=== PATIENT | male | born 1985 | race African-American/Black ===

== ENCOUNTER 2017-10-16 07:10 | Emergency (ER) | payer OTHER ==
[2017-10-16] MEDS ORDERED: ACETAMINOPHEN 325 MG TABLET (FP) PO ONE (07:14)
[2017-10-16 07:16] VITALS: BP 153/88; PULSE 96; TEMP 99.2; BMI 37.5
--- NOTE | 2017-10-16 07:19 | PDOC ---
History of Present Illness - General Chief Complaint: Respiratory Stated Complaint: SORE THROAT, COUGH, FEVER Time Seen by Provider: 10/16/17 07:14 History Source: Patient Exam Limitations: No Limitations - History of Present Illness Initial Comments: 10/16/17 07:14 32y M no pmhx presents with complaint of throat pain for the past few days associated with nasal congestion, post nasal drip, and subjective fevers. The pt states he has been just doing fluids the past few days and started trying rice last night, but noticed his throat felt more irritated. The patient took some benadyl and motrin last night but came in to get checked out. The pt also notes that he is snoring louder at night. The pt denies any significant cough, no back pain, cp, abd pain, rashes, known sick contacts, travel. Past History - Past Medical History Allergies/Adverse Reactions: Allergies Allergy/AdvReac Type Severity Reaction Status Date / Time No Known Allergies Allergy Verified 10/16/17 07:11 Home Medications: Ambulatory Orders NK [No Known Home Medication] 07/20/15 - Immunization History Immunization Up to Date: Yes - Suicide/Smoking/Psychosocial Hx Smoking Status: No Smoking History: Never smoked Have you smoked in the past 12 months: No Number of Cigarettes Smoked Daily: 0 Cigars Per Day: 0 Hx Alcohol Use: No Drug/Substance Use Hx: No Substance Use Type: None Review of Systems - Review of Systems Able to Perform ROS?: Yes Comments:: 10/16/17 07:16 Constitutional - + Fever,no reported Chills, HEENT: +sore throat nasal congestion, no reported vision changes, Respiratory: no reported cough, sob, hemoptysis Cardiac: no reported chest pain, palpitations, light headedness, leg swelling Abd/GI: no reported abd pain, nausea, vomiting, blood per rectum, melena, diarrhea : no reported dysuria, frequency, discharge Musculskelatal - no reported back pain, joint swelling skin - no reported bruising, erythema, rash neurological: no reported headache, numbness, focal weakness, tingling, ataxia, hematologic: no reported anemia, easy bruising, easy bleeding *Physical Exam - Physical Exam Comments: 10/16/17 07:17 GENERAL: The patient is awake, alert, and fully oriented, Nontoxic - in no acute distress. HEAD: Normocephalic, atraumatic. EYES: extraocular movements intact, sclera anicteric, conjunctiva clear. ENT: Normal voice, Moist mucous membranes, mildl erythema on posterior pharynx with slightly edemadous uvula, symmetric posterior pharynx, NECK: Normal range of motion, supple, no cervical lympadenopathy LUNGS: Breath sounds equal, clear to auscultation bilaterally. No wheezes, no rhonchi, no rales. HEART: Regular rate and rhythm, normal S1 and S2 without murmur, rub or gallop. ABDOMEN: Soft, nontender, normoactive bowel sounds. No guarding, no rebound. . No CVA tenderness EXTREMITIES: Normal range of motion, no edema. No clubbing or cyanosis. No cords, erythema, or tenderness. NEUROLOGICAL: No facial assymetry, Normal speech, PSYCH: Normal mood, normal affect. SKIN: Warm, Dry, normal turgor, Medical Decision Making - Medical Decision Making 10/16/17 07:18 suspect viral syndrome vs strep pharyngitis will give pt some tylenol posteriorphyarnx is symmetric without signs of DOOR FITTER will rapid strep if neg, anticipate supportive care with pmd fu 10/16/17 07:45 strep negative will dc pt with outpatient managment I discussed the physical exam findings, ancillary test results and final diagnoses with the patient. I answered all of the patient's questions. The patient was satisfied with the care received and felt comfortable with the discharge plan and treatment plan. The patient will call their primary care physician within 24 hours to arrange follow-up and will return to the Emergency Department with any new, persistent or worsening symptoms. *DC/Admit/Observation/Transfer Diagnosis at time of Disposition: Upper respiratory infection Qualifiers: URI type: acute pharyngitis Pharyngitis/tonsillitis etiology: other specified organisms Qualified Code(s): J02.8 - Acute pharyngitis due to other specified organisms - Discharge Dispostion Disposition: HOME Condition at time of disposition: Improved Admit: No - Referrals Referrals: Aleksandr Rose MD [Staff Physician] - - Patient Instructions Printed Discharge Instructions: DI for Viral Syndrome Additional Instructions: Return to the emergency department immediately with ANY new, persistent or worsening symptoms including any change in the patient's behavior, persistent fever beyond 5 days, inability to tolerate any oral intake or any other concerns. Take Tylenol or Motrin as needed every 6 hours for fever Take sudafed as needed for congestion. Make sure to stay well-hydrated with fluids You MUST call and follow up with your doctor tomorrow for further evaluation of your symptoms. Your emergency department visit is not complete without a followup with your doctor for reevaluation. Results were discussed with you. Please make sure your doctor reviews the results of your emergency evaluation. Print Language: TELUGU - Post Discharge Activity Forms/Work/School Notes: Back to Work
[2017-10-16] MEDS ORDERED: ACETAMINOPHEN 325 MG TABLET (FP) ONE (07:21)
== END 2017-10-16 07:54 | disposition home or self-care (01) ==
LOC: FER 07:10
DX: J02.8 Acute pharyngitis due to other specified organisms (principal)
CPT/HCPCS: 87070; 87430; 99281-25

== ENCOUNTER 2020-12-29 12:00 | Emergency (ER) | payer OTHER ==
[2020-12-29 12:09] VITALS: BP 166/96; PULSE 102; TEMP 100.1; BMI 37.5
[2020-12-29] MEDS ORDERED: ACETAMINOPHEN 325 MG TABLET (FP) PO ONE (12:28)
[2020-12-29] MEDS ORDERED: ACETAMINOPHEN 325 MG TABLET (FP) ONE (12:37)
[2020-12-29 12:56] LABS: BASO % 1.1 % (0-2.0); EOS % 1.2 % (0-4.5); HEMATOCRIT 49.8 % (35.4-49); LYMPH % 19.6 % (8-40); MCH 25.4 pg (25.7-33.7); MCHC 32.2 g/dl (32.0-35.9); MEAN PLT VOLUME 8.8 fl (7.5-11.1); MONO % 7.7 % (3.8-10.2); NEUT % 70.4 % (42.8-82.8); PLATELET COUNT 335 K/MM3 (134-434); RBC 6.31 M/mm3 (4.00-5.60); WHITE BLOOD COUNT 7.3 K/mm3 (4.0-10.8)
[2020-12-29 13:00] LABS: ALBUMIN 4.4 g/dl (3.4-5.0); BILIRUBIN,TOTAL 0.4 mg/dl (0.2-1); CALCIUM 9.7 mg/dl (8.5-10); CREATININE 1.2 mg/dl (0.55-1.3); POTASSIUM 4.2 mmol/L (3.5-5.1); TOT PROT 8.1 g/dl (6.4-8.2)
== END 2020-12-29 13:31 | disposition home or self-care (01) ==
LOC: FER 12:00
DX: R42 Dizziness and giddiness (principal); I10 Essential (primary) hypertension
CPT/HCPCS: 36415; 71045-TC-FY; 80053; 82550; 82553; 84484; 85025; 93005; 99285-25; C9803; U0003